=== PATIENT | male | born 2000 | race American Indian/Alaskan Native ===

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

== ENCOUNTER 2023-12-13 22:27 | Emergency (ER) | payer SELFPAY ==
[2023-12-13] MEDS: Lidocaine/Epineph/Tetracaine 3 ML Syringe TOP ONE (23:33)
[2023-12-14] MEDS: Lidocaine 1% with EPINEPHrine 1:100,000 20 ML MDV INJECT ONE (00:23)
[2023-12-14] MEDS: Diphtheria,Pertussis(Acell),Tetanus Vaccine 0.5 ML Syringe IM ONE (01:11)
[2023-12-14] MEDS: Bacitracin Oint 1 GM U/D Packet TOP ONE (01:12)
== END 2023-12-14 01:26 ==
LOC: JP.ED 22:27
DX: S61.411A Laceration without foreign body of right hand, initial encounter (principal); F17.210 Nicotine dependence, cigarettes, uncomplicated; Z88.8 Allergy status to other drugs, medicaments and biological substances; Z23 Encounter for immunization; Z79.899 Other long term (current) drug therapy; W25.XXXA Contact with sharp glass, initial encounter
CPT/HCPCS: 12002; 90471; 90715; 99283-25; A9270-GY